=== PATIENT | female | born 1945 | race Caucasian/White ===

== ENCOUNTER 2021-10-30 16:17 | Inpatient (IN) | payer BC ==
[~2021-10-30] VITALS: Ht 160 cm; Wt 63.5 kg
--- NOTE | 2021-10-30 16:39 | NUR ---
bib als for aloc. pt currently being tx for uti taking abx. pt gcs 15 hemant marin4. at bedside
[2021-10-30 16:46] VITALS: BP_SYST 147
[2021-10-30 17:12] LABS: BASOPHILS % (AUTO) 0.6 % (0.0-2.0); EOSINOPHILS # (AUTO) 0.1 K/uL (0.0-0.4); EOSINOPHILS % (AUTO) 0.8 % (0.0-4.0); HEMATOCRIT 37.8 % (36-48); HEMOGLOBIN 12.3 g/dL (12.0-16.0); LYMPHOCYTES # (AUTO) 1.2 K/uL (1.0-5.5); LYMPHOCYTES % (AUTO) 16.8 % (20.5-51.5); MEAN CORPUSCULAR HEMOGLOBIN 28 pg (27-31); MEAN CORPUSCULAR HGB CONC 33 % (32-36); MEAN CORPUSCULAR VOLUME 86 fL (79.0-98.0); MONOCYTES # (AUTO) 0.9 K/uL (0.0-1.0); MONOCYTES % (AUTO) 11.6 % (1.7-9.3); NEUTROPHILS # (AUTO) 5.2 K/uL (1.8-7.7); NEUTROPHILS % (AUTO) 70.2 % (40.0-70.0); PLATELET COUNT (AUTO) 276 K/uL (130-430); RED BLOOD CELL COUNT(AUTO) 4.38 MIL/uL (4.2-6.2); RED CELL DISTRIBUTION WIDTH 15.7 % (9.0-15.0); WHITE BLOOD COUNT (AUTO) 7.4 K/uL (4.8-10.8)
[2021-10-30 17:49] LABS: SODIUM SERUM 145 mmol/L (136-145)
[2021-10-30 17:50] LABS: ANION GAP 10 (5-15); ASPARTATE AMINOTRANSFERASE 45 U/L (10-37); CALCIUM 11.2 mg/dL (8.4-11.0); CHLORIDE 110 mmol/L (98-107); CREATININE 0.86 mg/dL (0.55-1.30); GLUCOSE 153 mg/dL (70-99); TOTAL BILIRUBIN 1.1 mg/dL (0.0-1.0); UREA NITROGEN, BLOOD 20 mg/dL (8-21)
[2021-10-30 17:51] LABS: ALANINE AMINOTRANSFERASE 44 U/L (12-78); ALBUMIN 3.1 g/dL (3.4-4.8)
[2021-10-30 17:52] LABS: POTASSIUM 2.8 mmol/L (3.5-5.1)
[2021-10-30 17:53] LABS: ACETONE, SERUM SMALL (NEGATIVE)
[2021-10-30] MEDS ORDERED: POTASSIUM CHLORIDE 20 MEQ/PKT PACKET PO ONE (18:00)
--- NOTE | 2021-10-30 18:08 | NUR ---
stephanie grande [phone]
[2021-10-30 18:40] LABS: BILIRUBIN,URINE 1+ (NEGATIVE); COLOR,URINE YELLOW (YELLOW); GLUCOSE,URINE NEGATIVE (NEGATIVE); KETONES,URINE 2+ (NEGATIVE); LEUKOCYTE ESTERASE ,URINE NEGATIVE (NEGATIVE); NITRITE, URINE NEGATIVE (NEGATIVE); PROTEIN URINE 2+ (NEGATIVE); UROBILINOGEN,URINE 0.2 (0.2-1.0)
[2021-10-30 18:49] LABS: BLOOD, URINE TRACE (NEGATIVE); CLARITY/URINE SLIGHTLY HAZY (CLEAR)
[2021-10-30 18:52] LABS: BACTERIA,URINE FEW /HPF (None Seen)
[2021-10-30 18:53] LABS: YEAST,URINE Few /HPF (None Seen)
--- NOTE | 2021-10-30 19:01 | NUR ---
attempted to call daughter christiane could not leave message mail box full.
--- NOTE | 2021-10-30 19:13 | NUR ---
report to brittnee ochoa
--- NOTE | 2021-10-30 19:22 | NUR ---
REPORT RECEIVED, PT AWAKE, ALERT TO NAME ONLY, FOLLOWS SIMPLE COMMANDS, DENIES ANY CHEST PAIN AT THIS TIME. DR LADD AT BEDSIDE FOR RE-EXAM AFTER TROPONIN RESULT CAME BACK OF 2771.8, PT IN NAD. RESP EVEN AND UNLABORED, ON RA @98%. REPEAT EKG BEING DONE AT THIS TIME. SAFETY PRECAUTIONS IN PLACE, WILL CONT TO MONITOR CLOSELY.
--- NOTE | 2021-10-30 19:47 | NUR ---
DTR AT BEDSIDE, DR WILBERTO THORNTON WITH HER, INCLUDING PLAN OF CARE. VSS.
--- NOTE | 2021-10-30 19:58 | NUR ---
Jaren OWEN, sent to the lab.
[2021-10-30] MEDS ORDERED: MORPHINE 2 MG/ML INJ. SYRINGE IVP ONE (20:00)
[2021-10-30] MEDS ORDERED: ASPIRIN 325 MG TABLET PO ONE (20:00)
--- NOTE | 2021-10-30 20:27 | NUR ---
MEDICATED ORDERED, PLAN OF CARE INFORMED TO FAMILY, THEY VERBALIZED UNDERSTANDING. SAFETY MEASURES IN PLACE, WILL CONT TO MONITOR CLOSELY.
[2021-10-30] MEDS ORDERED: ALBUTEROL SULFATE 0.083% 2.5 MG/3 ML VIAL.NEB INH PRN (20:45)
[2021-10-30 20:47] LABS: PROTHROMBIN TIME 82.3 SECS (9.5-12.5)
[2021-10-30 20:49] LABS: INR > 9.0 (0.8-1.2)
[2021-10-30] MEDS ORDERED: ALBU0.63 NEB (21:16)
[2021-10-30] MEDS ORDERED: ATRMDI INH (21:16)
[2021-10-30] MEDS ORDERED: METF-518 PO (21:16)
[2021-10-30] MEDS ORDERED: NITR-85 PO (21:16)
[2021-10-30] MEDS ORDERED: FLUT1BLS5 IH (21:16)
[2021-10-30] MEDS ORDERED: FURO-150 PO (21:16)
[2021-10-30] MEDS ORDERED: LOSA100T3 PO (21:16)
[2021-10-30] MEDS ORDERED: WARF1TAB84 PO (21:16)
[2021-10-30] MEDS ORDERED: POTA8TAB66 PO (21:16)
[2021-10-30] MEDS ORDERED: ONDA-8 TL (21:16)
--- NOTE | 2021-10-30 21:28 | NUR ---
Admit bed requested Patient will be admitted to care of . Admitted to TELE unit. Diagnosis NSTEMI,AMS Inpatient (Yes or No) YES Observation (Yes or No) NO Orientation concerns or request close to nursing station (Yes or No) YES Covid Status NEGATIVE On vent or bipap NO Isolation requirements NO Needs a sitter NO From Home (Yes or if No enter name of facility) YES Requires Dialysis (Yes or No) NO Med Rec Completed (Yes of No) YES
--- NOTE | 2021-10-30 21:55 | NUR ---
PT STABLE FOR TRANSFER, PT UPDATED PLAN OF CARE. VSS.
[2021-10-30 22:00] VITALS: BP_SYST 136
--- NOTE | 2021-10-30 22:29 | NUR ---
Patient will be admitted to care of DR . Admitted to unit. Will go to room . Belongings list completed. Complete and up to date summary report printed. SBAR report to be given at bedside with opportunity for questions.
[2021-10-30] MEDS: D5/0.45 NS 1,000 ML IV SCH (22:45)
--- NOTE | 2021-10-30 22:45 | NUR ---
PT ADMITTED TO [facility]. PT AOX0 UNABLE TO MAKE NEEDS KNOWN. PT WAS ONLY ABLE TO MOAN AND GROAN. RR EVEN AND UNLABORED. PT HAS RED FIGUEREDO ON LEFT FOREARM. IV IN RFA 22G. IV FLUIDS STARTED PER ORDERS. HOB ELEVATED. BE RAILS UPX3. BED ALARM ON. PT CLOSE TO NURSING STATION. FAMILY NOT AT BEDSIDE. WILL CONTINUE TO MONITOR.
[2021-10-30 23:11] VITALS: BP_SYST 154
[2021-10-30] MEDS ORDERED: *LOVENOX 1MG/KG Q12H/PHARMACY XX ONE (23:15)
[2021-10-30] MEDS ORDERED: PHYTONADIONE Non-Formulary 5 MG TABLET PO ONE (23:15)
[2021-10-30] MEDS ORDERED: ENOXAPARIN SODIUM 80 MG/0.8 ML SYRINGE SUBCUT SCH (23:30)
[2021-10-30] MEDS ORDERED: PHYTONADIONE (Vitamin K) Oral Solution PO ONE (23:30)
[2021-10-31 00:55] VITALS: BP_SYST 141
--- NOTE | 2021-10-31 02:35 | NUR ---
CONSULTATION PAGED REASON FOR CONSULTATION: NSTEMI WAS CONSULT CALED? Y PERSON WHO WAS NOTIFIED: Pamela CONSULTING PHYSICIAN: Dr. Little REQUESTING PHYSICIAN:Dr. Licea
--- NOTE | 2021-10-31 06:57 | NUR ---
PT SLEPT THROUGH NIGHT/ PT STARTING TO MOVE AROUND MORE IN BED. PT STILL UNABLE TO MAKE NEEDS KNOWN. WILL ENDORSE CARE TO DAY RN. BED ALARM ON. BED RAILS UPX3. W
[2021-10-31 07:09] LABS: BASOPHILS % (AUTO) 0.5 % (0.0-2.0); EOSINOPHILS # (AUTO) 0.3 K/uL (0.0-0.4); EOSINOPHILS % (AUTO) 4.1 % (0.0-4.0); HEMATOCRIT 36.8 % (36-48); HEMOGLOBIN 12.3 g/dL (12.0-16.0); LYMPHOCYTES # (AUTO) 1.3 K/uL (1.0-5.5); LYMPHOCYTES % (AUTO) 17.7 % (20.5-51.5); MEAN CORPUSCULAR HEMOGLOBIN 29 pg (27-31); MEAN CORPUSCULAR HGB CONC 33 % (32-36); MEAN CORPUSCULAR VOLUME 87 fL (79.0-98.0); MONOCYTES # (AUTO) 0.9 K/uL (0.0-1.0); MONOCYTES % (AUTO) 12.6 % (1.7-9.3); NEUTROPHILS # (AUTO) 4.8 K/uL (1.8-7.7); NEUTROPHILS % (AUTO) 65.1 % (40.0-70.0); PLATELET COUNT (AUTO) 257 K/uL (130-430); RED BLOOD CELL COUNT(AUTO) 4.25 MIL/uL (4.2-6.2); RED CELL DISTRIBUTION WIDTH 15.4 % (9.0-15.0); WHITE BLOOD COUNT (AUTO) 7.4 K/uL (4.8-10.8)
[2021-10-31 08:00] VITALS: BP_SYST 151
[2021-10-31 08:42] LABS: ALANINE AMINOTRANSFERASE 45 U/L (12-78); ALBUMIN 2.8 g/dL (3.4-4.8); ANION GAP 10 (5-15); ASPARTATE AMINOTRANSFERASE 48 U/L (10-37); CALCIUM 10.8 mg/dL (8.4-11.0); CHLORIDE 112 mmol/L (98-107); CREATININE 0.75 mg/dL (0.55-1.30); GLUCOSE 144 mg/dL (70-99); PHOSPHORUS 2.5 mg/dL (2.7-4.5); SODIUM SERUM 148 mmol/L (136-145); UREA NITROGEN, BLOOD 18 mg/dL (8-21)
[2021-10-31] MEDS ORDERED: cefTRIAXone 1 GM in D5W 50 ML IV SCH (09:00)
[2021-10-31] MEDS: cefTRIAXone 1 GM in D5W 50 ML IV SCH (09:20)
[2021-10-31 09:23] LABS: POTASSIUM 2.5 mmol/L (3.5-5.1)
[2021-10-31] MEDS ORDERED: POTASSIUM CHLORIDE 20 MEQ TAB.PRT.SR PO ONE (09:45)
[2021-10-31 09:48] LABS: PROTHROMBIN TIME 101.7 SECS (9.5-12.5)
[2021-10-31 09:51] LABS: INR > 9.0 (0.8-1.2)
[2021-10-31] MEDS ORDERED: PHYTONADIONE Non-Formulary 5 MG TABLET PO ONE (10:00)
--- NOTE | 2021-10-31 10:00 | NUR ---
I notified Dr. Licea and Dr. Little of critical lab values for INR and troponin. New orders noted. Pt denies any chest pain and no apparent bleeding noted.
[2021-10-31] MEDS ORDERED: PHYTONADIONE (Vitamin K) Oral Solution PO ONE (10:15)
[2021-10-31] MEDS: levETIRAcetam 500 MG TABLET PO SCH ×2 (10:41→20:17)
[2021-10-31 11:39] VITALS: BP_SYST 117
--- NOTE | 2021-10-31 13:01 | NUR ---
paged Dr Little for labs and orders talked to Luba
[2021-10-31] MEDS: INSULIN LISPRO SLIDING SCALE 100 UNITS/ML VIAL (humaLOG) SUBCUT PRN ×2 (13:03→18:06)
[2021-10-31] MEDS: ONDANSETRON HCL 4 MG/2 ML VIAL IVP PRN (14:39)
[2021-10-31 15:29] VITALS: BP_SYST 135
--- NOTE | 2021-10-31 18:00 | NUR ---
Pt has had troponin levels trending upward throughout the shift. Dr. Little notified. No new orders noted. Pt remains awake, alert, and coherent. Pt has O2 and suction set up at bedside for aspiration precautions. I spoke with pt's nicola this shift. Pt was able to speak on the phone with her daughter David today. No s/s acute distress noted.
[2021-10-31] MEDS: D5/0.45 NS 1,000 ML IV SCH (19:00)
[2021-10-31 20:16] VITALS: BP_SYST 123
[2021-10-31] MEDS ORDERED: POTASSIUM CHLORIDE 20 MEQ TAB.PRT.SR PO SCH (21:00)
[2021-11-01 00:38] VITALS: BP_SYST 130
[2021-11-01] MEDS: D5/0.45 NS 1,000 ML IV SCH ×2 (05:46→18:16)
[2021-11-01 06:32] LABS: BASOPHILS % (AUTO) 0.5 % (0.0-2.0); EOSINOPHILS # (AUTO) 0.3 K/uL (0.0-0.4); EOSINOPHILS % (AUTO) 4.7 % (0.0-4.0); HEMATOCRIT 34.5 % (36-48); HEMOGLOBIN 11.4 g/dL (12.0-16.0); LYMPHOCYTES # (AUTO) 1.1 K/uL (1.0-5.5); LYMPHOCYTES % (AUTO) 15.2 % (20.5-51.5); MEAN CORPUSCULAR HEMOGLOBIN 29 pg (27-31); MEAN CORPUSCULAR HGB CONC 33 % (32-36); MEAN CORPUSCULAR VOLUME 87 fL (79.0-98.0); MONOCYTES # (AUTO) 0.8 K/uL (0.0-1.0); MONOCYTES % (AUTO) 11.5 % (1.7-9.3); NEUTROPHILS # (AUTO) 4.9 K/uL (1.8-7.7); NEUTROPHILS % (AUTO) 68.1 % (40.0-70.0); PLATELET COUNT (AUTO) 252 K/uL (130-430); RED BLOOD CELL COUNT(AUTO) 3.96 MIL/uL (4.2-6.2); RED CELL DISTRIBUTION WIDTH 15.6 % (9.0-15.0); WHITE BLOOD COUNT (AUTO) 7.2 K/uL (4.8-10.8)
[2021-11-01 07:00] VITALS: BP_SYST 131
[2021-11-01] MEDS: ONDANSETRON HCL 4 MG/2 ML VIAL IVP PRN ×2 (07:56→15:37)
[2021-11-01 08:04] LABS: ALANINE AMINOTRANSFERASE 53 U/L (12-78); ALBUMIN 2.6 g/dL (3.4-4.8); ANION GAP 8 (5-15); ASPARTATE AMINOTRANSFERASE 56 U/L (10-37); CALCIUM 10.4 mg/dL (8.4-11.0); CHLORIDE 113 mmol/L (98-107); CREATININE 0.73 mg/dL (0.55-1.30); GLUCOSE 135 mg/dL (70-99); POTASSIUM 3.4 mmol/L (3.5-5.1); SODIUM SERUM 148 mmol/L (136-145); UREA NITROGEN, BLOOD 15 mg/dL (8-21)
[2021-11-01 08:48] LABS: INR 1.5 (0.8-1.2); PROTHROMBIN TIME 15.7 SECS (9.5-12.5)
[2021-11-01] MEDS: cefTRIAXone 1 GM in D5W 50 ML IV SCH (09:06)
[2021-11-01] MEDS: levETIRAcetam 500 MG TABLET PO SCH ×2 (09:07→21:54)
[2021-11-01] MEDS ORDERED: POTASSIUM CHLORIDE 20 MEQ TAB.PRT.SR PO ONE (11:30)
[2021-11-01 11:31] VITALS: BP_SYST 128
[2021-11-01] MEDS: INSULIN LISPRO SLIDING SCALE 100 UNITS/ML VIAL (humaLOG) SUBCUT PRN (15:29)
[2021-11-01 15:38] VITALS: BP_SYST 131
[2021-11-01] MEDS: WARFARIN SODIUM 4 MG TABLET PO SCH (18:22)
--- NOTE | 2021-11-01 18:57 | NUR ---
Patient is way more awake, alert, and responsive today. However, patient remains on aspiration precaution due to history of stroke x 3 and n/v at times. Pt was given prn anti-emetics to control nausea, Nurse at bedside to monitor during meals. Patient exhibits no s/s acute distress. Pt's and daughter has visited at bedside today. Pt is able to communicate wants et needs.
--- NOTE | 2021-11-01 19:30 | NUR ---
RECEIVED REPORT ON PATIENT FROM JOHN SCOTT, ASSUMED CARE, AND STARTED ASSESSMENT. PATIENT IS KINYARWANDA SPEAKING ONLY. WILL CONTINUE TO MONITOR AND ASSESS FOR SAFETY AND COMFORT.
[2021-11-01 20:00] VITALS: BP_SYST 130
[2021-11-02 00:55] VITALS: BP_SYST 130
[2021-11-02 08:00] VITALS: BP_SYST 142
[2021-11-02] MEDS: levETIRAcetam 500 MG TABLET PO SCH ×2 (09:48→23:11)
[2021-11-02] MEDS: cefTRIAXone 1 GM in D5W 50 ML IV SCH (09:49)
[2021-11-02] MEDS: D5/0.45 NS 1,000 ML IV SCH ×2 (09:49→19:16)
[2021-11-02 09:56] LABS: BASOPHILS % (AUTO) 0.2 % (0.0-2.0); EOSINOPHILS # (AUTO) 0.4 K/uL (0.0-0.4); EOSINOPHILS % (AUTO) 5.3 % (0.0-4.0); HEMATOCRIT 34.3 % (36-48); HEMOGLOBIN 11.3 g/dL (12.0-16.0); LYMPHOCYTES # (AUTO) 1.3 K/uL (1.0-5.5); LYMPHOCYTES % (AUTO) 16.8 % (20.5-51.5); MEAN CORPUSCULAR HEMOGLOBIN 29 pg (27-31); MEAN CORPUSCULAR HGB CONC 33 % (32-36); MEAN CORPUSCULAR VOLUME 87 fL (79.0-98.0); MONOCYTES # (AUTO) 0.8 K/uL (0.0-1.0); MONOCYTES % (AUTO) 10.1 % (1.7-9.3); NEUTROPHILS # (AUTO) 5.3 K/uL (1.8-7.7); NEUTROPHILS % (AUTO) 67.6 % (40.0-70.0); PLATELET COUNT (AUTO) 252 K/uL (130-430); RED BLOOD CELL COUNT(AUTO) 3.96 MIL/uL (4.2-6.2); RED CELL DISTRIBUTION WIDTH 15.8 % (9.0-15.0); WHITE BLOOD COUNT (AUTO) 7.9 K/uL (4.8-10.8)
[2021-11-02 10:19] LABS: ALANINE AMINOTRANSFERASE 44 U/L (12-78); ALBUMIN 2.6 g/dL (3.4-4.8); ASPARTATE AMINOTRANSFERASE 46 U/L (10-37); CALCIUM 10.3 mg/dL (8.4-11.0); CREATININE 0.48 mg/dL (0.55-1.30); GLUCOSE 143 mg/dL (70-99); TOTAL BILIRUBIN 0.9 mg/dL (0.0-1.0); UREA NITROGEN, BLOOD 9 mg/dL (8-21)
--- NOTE | 2021-11-02 10:37 | NUR ---
RECEIVED CRITICAL LAB FROM [facility] [id number]
[2021-11-02 10:59] LABS: ANION GAP 8 (5-15); CHLORIDE 110 mmol/L (98-107); POTASSIUM 3.5 mmol/L (3.5-5.1); SODIUM SERUM 144 mmol/L (136-145)
[2021-11-02 11:30] VITALS: BP_SYST 141
[2021-11-02] MEDS: INSULIN LISPRO SLIDING SCALE 100 UNITS/ML VIAL (humaLOG) SUBCUT PRN (12:06)
[2021-11-02 15:31] VITALS: BP_SYST 131
[2021-11-02 16:00] VITALS: BP_SYST 131
[2021-11-02] MEDS ORDERED: POTASSIUM CHLORIDE 20 MEQ TAB.PRT.SR PO ONE (16:00)
[2021-11-02] MEDS: WARFARIN SODIUM 4 MG TABLET PO SCH (18:00)
--- NOTE | 2021-11-02 18:25 | NUR ---
Patient not eating meals from home or hospital. Patient is clearly showing signs of hallucinations and confusion, possible sundowning. Patient needs to be considered for snf care.
[2021-11-02 18:56] LABS: INR 1.1 (0.8-1.2); PROTHROMBIN TIME 11.7 SECS (9.5-12.5)
--- NOTE | 2021-11-02 20:00 | NUR ---
IV SL LEAKING. FAMILY REPORTS PT IS A "HARD STICK". PT'S FAMILY ASKED THAT IF S/O WHO WORKS WITH "HARD STICKS" CANNOT START IV SL THEN THEY WILL ACCEPT A PICC. NOBODY AVAILABLE FOR ATTEMPTING SL. NOC RN UNABLE TO FIND VIABLE VEIN FOR STARTING IV SITE. CALLED FOR ORDER FOR PICC.
--- NOTE | 2021-11-02 23:17 | NUR ---
ATTEMPT ON RARM SALINE LOCK FAILED. WILL CALL PCP FOR PICC ORDERS.
--- NOTE | 2021-11-02 23:31 | NUR ---
PER PT'S FAMILY'S REQUEST, PT WAS STUCK ONCE IN AN ATTEMPT TO START A SALINE LOCK BUT ATTEMPT FAILED. PER PT'S FAMILY'S REQUEST, SHOULD A SINGLE ATTEMPT FAIL, THEN THE FAMILY WOULD AGREE TO A PICC/MIDLINE. THEREFORE, MESSAGE LEFT REQUESTING ORDERS FOR PICC/MIDLINE (DR. ORSA IS THE COVERING MD).
[2021-11-03 00:59] VITALS: BP_SYST 124
[2021-11-03 06:35] LABS: INR 1.1 (0.8-1.2); PROTHROMBIN TIME 11.7 SECS (9.5-12.5)
[2021-11-03 06:37] LABS: ALANINE AMINOTRANSFERASE 38 U/L (12-78); ALBUMIN 2.5 g/dL (3.4-4.8); ANION GAP 5 (5-15); ASPARTATE AMINOTRANSFERASE 28 U/L (10-37); CALCIUM 10.3 mg/dL (8.4-11.0); CHLORIDE 109 mmol/L (98-107); CREATININE 0.39 mg/dL (0.55-1.30); GLUCOSE 112 mg/dL (70-99); LIPASE 118 U/L (73-393); POTASSIUM 3.9 mmol/L (3.5-5.1); SODIUM SERUM 142 mmol/L (136-145); TOTAL BILIRUBIN 1.1 mg/dL (0.0-1.0); UREA NITROGEN, BLOOD 9 mg/dL (8-21)
[2021-11-03] MEDS: D5/0.45 NS 1,000 ML IV SCH (07:46)
[2021-11-03 08:00] VITALS: BP_SYST 139
--- NOTE | 2021-11-03 09:36 | NUR ---
DC PLANNING Order for dc planning for home health. Called & spoke with Mr Riley, ph [phone], agreeable with plan to dc home with home health. Is aware plan is for dc today if stable. Has no preference for home health company. Addendum: 11/03/21 at 1554 by Justine Bean RN Received order for [facility] for rehab. Called & spoke with & states pt has been to TCU in past & that is where wants pt to go. If unable to go there would like pt to go to facility pt's PCP, Dr Dior, [facility], goes to or recommends. Called Dr Dior office, ph [phone], & lt msg requesting SNF goes to or recommends for pt. Faxed referral to [facility], ph [phone] fax [phone]. Addendum: 11/03/21 at 1609 by Justine Bean RN Received call from Rocky at Dr Dior office & states only [facility] to [facility].
[2021-11-03] MEDS: levETIRAcetam 500 MG TABLET PO SCH ×2 (10:59→20:55)
[2021-11-03] MEDS: cefTRIAXone 1 GM in D5W 50 ML IV SCH (10:59)
--- NOTE | 2021-11-03 11:06 | NUR ---
Discharge Planning: DCP faxed pt referal to [facility], DCP to follow up. Addendum: 11/03/21 at 1534 by Isamar QUINTANA DCP was informed [facility] declined pt.
[2021-11-03 11:38] VITALS: BP_SYST 118
[2021-11-03 15:29] VITALS: BP_SYST 120
--- NOTE | 2021-11-03 16:28 | NUR ---
PHYSICAL THERAPIST HERE TODAY AND WORKED WITH PATIENT TO AMBULATE AND NOTED CAN HARDLY GET UP AND STEP FORWARD OR GET HER BUTTOCKS UP.MD MADE AWARE OF PATIENTS UNABLE TO FOLLOW PT AT THIS POINT.
[2021-11-03] MEDS: WARFARIN SODIUM 4 MG TABLET PO SCH (17:18)
[2021-11-03 20:00] VITALS: BP_SYST 138
[2021-11-04 02:13] VITALS: BP_SYST 164
[2021-11-04 06:31] LABS: INR 1.1 (0.8-1.2)
[2021-11-04 06:40] LABS: BASOPHILS % (AUTO) 0.4 % (0.0-2.0); EOSINOPHILS # (AUTO) 0.2 K/uL (0.0-0.4); EOSINOPHILS % (AUTO) 2.5 % (0.0-4.0); HEMOGLOBIN 11.5 g/dL (12.0-16.0); LYMPHOCYTES # (AUTO) 1.4 K/uL (1.0-5.5); MEAN CORPUSCULAR HEMOGLOBIN 29 pg (27-31); MEAN CORPUSCULAR HGB CONC 34 % (32-36); MEAN CORPUSCULAR VOLUME 87 fL (79.0-98.0); MONOCYTES # (AUTO) 0.9 K/uL (0.0-1.0); MONOCYTES % (AUTO) 10.3 % (1.7-9.3); NEUTROPHILS # (AUTO) 5.9 K/uL (1.8-7.7); NEUTROPHILS % (AUTO) 69.8 % (40.0-70.0); PLATELET COUNT (AUTO) 277 K/uL (130-430); RED BLOOD CELL COUNT(AUTO) 3.91 MIL/uL (4.2-6.2); RED CELL DISTRIBUTION WIDTH 15.6 % (9.0-15.0); WHITE BLOOD COUNT (AUTO) 8.5 K/uL (4.8-10.8)
--- NOTE | 2021-11-04 07:25 | NUR ---
OPENING NOTE Patient awake in bed resting. No sign of distress, patient denies pain at this time. Updated patient on her plan of care for the day. IV is clean, dry, intact and running prescribed fluids. Patient denies any nausea at this time. Safety checks made, all needs met at this time. Will continue to monitor.
--- NOTE | 2021-11-04 07:28 | NUR ---
PHYSICAL THERAPY CO-SIGN The Physical Therapy Progress Notes documented by Bin Packer have been reviewed. Reviewed/Co-Signed by: Simon Chung Documentation Done by: JEN LOAIZA PTA Addendum: 11/04/21 at 6029 by Simon Chung PT Amended: Links added.
[2021-11-04 08:00] VITALS: BP_SYST 126
[2021-11-04] MEDS: levETIRAcetam 500 MG TABLET PO SCH ×2 (09:07→21:22)
[2021-11-04 09:16] LABS: ALANINE AMINOTRANSFERASE 33 U/L (12-78); ALBUMIN 2.5 g/dL (3.4-4.8); ANION GAP 7 (5-15); CALCIUM 10.3 mg/dL (8.4-11.0); GLUCOSE 108 mg/dL (70-99); POTASSIUM 4.4 mmol/L (3.5-5.1); TOTAL BILIRUBIN 1.4 mg/dL (0.0-1.0); UREA NITROGEN, BLOOD 12 mg/dL (8-21)
[2021-11-04 09:40] LABS: ASPARTATE AMINOTRANSFERASE 30 U/L (10-37); CHLORIDE 106 mmol/L (98-107); CREATININE 0.43 mg/dL (0.55-1.30); SODIUM SERUM 140 mmol/L (136-145)
[2021-11-04] MEDS: cefTRIAXone 1 GM in D5W 50 ML IV SCH (09:50)
[2021-11-04 11:30] VITALS: BP_SYST 141
--- NOTE | 2021-11-04 13:38 | NUR ---
Dietitian Recommendations Card[facility], [facility] w/ Kennedy Deon BID. Supplement provides an additional 360 kcals/day and 20 g protein/day. Please refer to nutrition assessment for details. Signed: 11/04/21 at 1339 by Karla BRAXTON <Co-Signature Required> Co-Signed: 11/04/21 at [address] Addendum: 11/04/21 at 1339 by Karla BRAXTON Amended: Links added.
--- NOTE | 2021-11-04 14:30 | NUR ---
NEW IV STARTED Previous IV infiltrated, removed and bandaged. No active bleeding. New IV placed on the right forearm, 22g. Patient tolerated well.
[2021-11-04] MEDS ORDERED: SIMETHICONE 80 MG TAB.CHEW PO ONE ×2 (14:45→18:45)
[2021-11-04 15:28] VITALS: BP_SYST 143
--- NOTE | 2021-11-04 16:34 | NUR ---
Discharge Planning: DCP faxed pt referral to [facility] per family request. DCP to follow
[2021-11-04] MEDS: WARFARIN SODIUM 4 MG TABLET PO SCH (18:51)
--- NOTE | 2021-11-04 19:28 | NUR ---
CLOSING NOTE Patient in bed eating dinner with daughter at bedside. Patient has an excellent appetite. No sign of distress, patient complains of mild pain in her neck and head. MD paged for PRN orders and oncoming nurse aware. All needs met at this time, safety checks made. Endorsed to shift lab technician nurse.
--- NOTE | 2021-11-04 19:30 | NUR ---
OPENING NOTE PT IS SITTING UP IN BED WITH EYES CLOSED. NO APPARENT DISTRESS NOTED AT THIS TIME. PT COMPLAINS OF PAIN IN HER HEAD. BED IS IN LOWEST POSITION WITH FALL AND SAFETY PRECAUTIONS IN PLACE. CALL LIGHT IS WITHIN REACH, PT EDUCATED ON HOW TO USE IT. LANGUAGE BARRIER LIMITED TEACHING. IV FLUIDS RUNNING ORDERED
[2021-11-04 20:00] VITALS: BP_SYST 150
--- NOTE | 2021-11-04 20:52 | NUR ---
Salvador Adams s/w Paige
[2021-11-04] MEDS: DOCUSATE SODIUM 100 MG CAPSULE PO SCH (21:22)
[2021-11-04] MEDS: ACETAMINOPHEN 325 MG TABLET PO PRN (21:22)
[2021-11-04] MEDS: D5/0.45 NS 1,000 ML IV SCH (21:27)
[2021-11-05] MEDS: ACETAMINOPHEN 325 MG TABLET PO PRN ×2 (06:29→16:44)
--- NOTE | 2021-11-05 06:57 | NUR ---
CLOSING NOTE PT IS SEMI FOWLERS IN BED. NO APPARENT DISTRESS NOTED AT THIS TIME. PT COMPLAINED OF MILD PAIN, NURSE GAVE PRN MEDICATION. BED IS IN LOWEST POSITION WITH FALL AND SAFETY PRECAUTIONS IN PLACE. CALL LIGHT IS WITHIN REACH. IV FLUIDS RUNNING ORDERED
[2021-11-05 07:27] LABS: INR 1.2 (0.8-1.2); PROTHROMBIN TIME 12.3 SECS (9.5-12.5)
--- NOTE | 2021-11-05 07:45 | NUR ---
OPENING NOTE Patient awake, oriented only to self. Patient attempted to get out of bed but was able to be redirected. No sign of distress, patient denies pain at this time. IV intact and running prescribed fluids. Safety checks made and all needs met at this time. Will continue to monitor.
[2021-11-05 08:00] VITALS: BP_SYST 124
[2021-11-05] MEDS: DOCUSATE SODIUM 100 MG CAPSULE PO SCH (08:48)
[2021-11-05] MEDS: levETIRAcetam 500 MG TABLET PO SCH (08:48)
--- NOTE | 2021-11-05 09:38 | NUR ---
Discharge Planning: DCP followed up and faxed updated PT to [facility] will come out to eval patient per family request. DCP followed up with Estella at [facility], she will call spouse to inquire if patient is vaccinated and DC plan. DCP to follow up. Addendum: 11/05/21 at 1633 by Isamar Kennedy DP DCP arrange transport with [facility] [phone] BLS 8:30pm to [facility] P# [phone] [id number]. Patient packet taken to nurse station.
[2021-11-05] MEDS: D5/0.45 NS 1,000 ML IV SCH (10:45)
--- NOTE | 2021-11-05 11:07 | NUR ---
CM: CALLED [facility] SPOKE WITH TOM (ADMISSION COORDINATOR), , INQUIRED INTO STATUS OF PT'S REFERRAL, STATED SHE HAS JUST COMPLETED THE QUESTIONNAIRE FOR INSURANCE COMPANY AND WAITING FOR APPROVAL, HOPEFULLY BY THE END OF THE DAY, WILL CALL WHEN BED AVAILABLE PENDING APPROVAL.
--- NOTE | 2021-11-05 11:24 | NUR ---
ROUNDS Patient in bed resting, watching TV. No sign of distress, patient denies pain. IV intact and running prescribed fluids. Patient has been attempting to get out of bed but is able to be redirected. Safety measures in place. All needs met at this time, will continue to monitor.
[2021-11-05 11:25] VITALS: BP_SYST 117
[2021-11-05 15:27] VITALS: BP_SYST 128
--- NOTE | 2021-11-05 16:00 | NUR ---
CM: SPOKE WITH TOM AT [facility], RECEIVED AUTH FROM INSURANCE, ACCEPTED BY [facility] RM[id number], CALLED DAUGHTER DAMIÁN INFORMED OF TRANSFER, AND SHE WAS VERY GRATEFUL, EST IS 2030P BY [employer], PACKET ON THE FLOOR. Addendum: 11/05/21 at 1640 by Brenda Estes RN CM: SPOKE WITH DR. CHASE, RECEIVED ORDER FOR DISCHARGE, STATES HE WILL FOLLOW PT TO [facility] SITE.
--- NOTE | 2021-11-05 17:27 | NUR ---
SPOKE TO DAUGHTER REGARDING TRANSFER Spoke to Sandra, family consents to transfer. Transfer consent signed and in chart.
--- NOTE | 2021-11-05 17:40 | NUR ---
REPORT GIVEN TO [facility] Spoke to JOHN Varghese. Gave report, answered all questions. Facility is aware that patient is scheduled to be picked up at 2029.
[2021-11-05 17:51] VITALS: BP_SYST 128
[2021-11-05] MEDS ORDERED: WARFARIN SODIUM 5 MG TABLET PO SCH (18:00)
--- NOTE | 2021-11-05 18:40 | NUR ---
CLOSING NOTE Patient resting in bed after eating dinner, family at bedside. Patient and family are aware she will be transferred tonight. IV intact, running prescribed fluids. Patient denies pain at this time, no sign of distress. All needs met at this time, safety checks made. Will endorse to shift mechanic nurse.
--- NOTE | 2021-11-05 21:10 | NUR ---
D/C Patient Patient given medication reconciliation form and D/C instructions. Exit Care provided. Patient verbalized understanding. MD discussed with patient the results and treatment provided. Ambulatory with steady gait for discharge to home. Patient in stable condition, ID band removed. IV catheter removed, intact and dressing applied, no active bleeding. All belongings sent with patient.
== END 2021-11-05 21:10 | disposition short-term general hospital (02) | DRG 281 ==
LOC: SED 16:17 → STU 20:45 → SMU 11-05 10:09 → STU 11-05 16:11 → SMU 11-05 16:48
PROVIDERS: ADMIT Internal Medicine Nephrology; ATTEND Internal Medicine Nephrology
DX: I21.4 Non-ST elevation (NSTEMI) myocardial infarction (principal); N39.0 Urinary tract infection, site not specified; I48.91 Unspecified atrial fibrillation; E87.6 Hypokalemia; I25.10 Atherosclerotic heart disease of native coronary artery without angina pectoris; R53.81 Other malaise; I35.0 Nonrheumatic aortic (valve) stenosis; G40.909 Epilepsy, unspecified, not intractable, without status epilepticus; R79.1 Abnormal coagulation profile; E11.9 Type 2 diabetes mellitus without complications; Z20.822 Contact with and (suspected) exposure to COVID-19; Z85.038 Personal history of other malignant neoplasm of large intestine; Z85.3 Personal history of malignant neoplasm of breast; Z86.73 Personal history of transient ischemic attack (TIA), and cerebral infarction without residual deficits; Z87.440 Personal history of urinary (tract) infections; Z87.891 Personal history of nicotine dependence; Z90.12 Acquired absence of left breast and nipple; Z95.0 Presence of cardiac pacemaker
CPT/HCPCS: 36415; 70450-TC; 71045; 73560-TC; 74018; 76376; 76700-TC; 80053; 81000; 82009; 82550; 82962; 83605; 83690; 83735; 83880; 83970; 84100; 84484; 84550; 85025; 85610-TC; 85730-TC; 87086; 93005; 93306; 96374; 97110-GP; 97116-GP; 97530-GP; 99285; G0378; G0481; J0696; J1650; J2270; J2405; J3430; J7060